=== PATIENT | male | born 1995 | race Caucasian/White ===

== ENCOUNTER 2021-01-06 14:22 | Inpatient (IN) | payer OTHER, SELFPAY ==
[2021-01-06 14:54] LABS: HEMATOCRIT 51.1 % (42.0-52.0); HEMOGLOBIN 17.3 g/dl (13.5-17.5); MEAN CORPUSCULAR HEMOGLOBIN 32.4 pg (27.0-33.0); MEAN CORPUSCULAR HGB CONC 33.9 g/dl (32.0-36.5); MEAN CORPUSCULAR VOLUME 95.7 fl (80.0-96.0); PLATELET COUNT, AUTOMATED 283 10^3/uL (150-450); RED BLOOD COUNT 5.34 10^6/uL (4.30-6.10); WHITE BLOOD COUNT 10.9 10^3/uL (4.0-10.0)
[2021-01-06 15:18] LABS: AMPHETAMINES LEVEL URINE NEGATIVE (NEGATIVE); BARBITURATES URINE NEGATIVE (NEGATIVE); BENZODIAZEPINES URINE NEGATIVE (NEGATIVE); CANNABINOIDS URINE POSITIVE (NEGATIVE); COCAINE METABOLITE URINE NEGATIVE (NEGATIVE); METHADONE URINE NEGATIVE (NEGATIVE); OPIATES URINE NEGATIVE (NEGATIVE); PHENCYCLIDINE URINE NEGATIVE (NEGATIVE)
[2021-01-06 15:31] LABS: ACETAMINOPHEN LEVEL < 2.0 UG/ML (10.0-30.0); ALBUMIN 4.7 GM/DL (3.2-5.2); ALT/SGPT 57 U/L (12-78); BILIRUBIN,DIRECT 0.2 MG/DL (0.0-0.2); BILIRUBIN,TOTAL 0.6 MG/DL (0.2-1.0); BLOOD UREA NITROGEN 7 MG/DL (7-18); CALCIUM LEVEL 9.5 MG/DL (8.5-10.1); CARBON DIOXIDE LEVEL 23 MEQ/L (21-32); CHLORIDE LEVEL 105 MEQ/L (98-107); CREATININE FOR GFR 0.96 MG/DL (0.70-1.30); ETHYL ALCOHOL (ETHANOL) 0.159 % (0.000-0.010); GLOMERULAR FILTRATION RATE > 60.0 (>60); GLUCOSE, FASTING 82 MG/DL (70-100); POTASSIUM SERUM 3.8 MEQ/L (3.5-5.1); SALICYLATE LEVEL 1.8 MG/DL (5.0-30.0); SODIUM LEVEL 137 MEQ/L (136-145); THYROID STIMULATING HORMONE 0.255 uIU/ML (0.358-3.740); TOTAL PROTEIN 8.3 GM/DL (6.4-8.2)
[2021-01-06] MEDS ORDERED: NICOTINE 21MG/24HR 1 EA TRANSDERMAL TD ONE (17:30)
--- NOTE | 2021-01-06 19:24 | REP ---
INDICATION: trauma COMPARISON: None. TECHNIQUE: Frontal view of the chest with multiple views of the right hemithorax. Five total images. FINDINGS: Frontal view of the chest demonstrates no acute cardiopulmonary process, contusion, effusion, or pneumothorax. Multiple views of the right hemithorax demonstrates no acute rib fracture/injury or pathology. IMPRESSION: Normal rib series. <Electronically signed by Jeffrey Sams > 01/06/21 1921
[2021-01-06] MEDS ORDERED: CEPACOL LOZENGE MT ONE (22:35)
[2021-01-06] MEDS ORDERED: PROBCAP14 PO (22:48)
[2021-01-07] MEDS ORDERED: LORazepam 2 MG TAB PO STA (02:09)
[2021-01-07] MEDS ORDERED: CEPACOL LOZENGE MT ONE (21:15)
[2021-01-08] MEDS: NICOTINE 21MG/24HR 1 EA TRANSDERMAL TD SCH (09:00)
[2021-01-08 12:31] LABS: RSV AMPLIFICATION NEGATIVE (NEGATIVE)
[2021-01-08] MEDS ORDERED: MAALOX 30 ML SUSP *UDC PO PRN (13:35)
[2021-01-08] MEDS ORDERED: ACETAMINOPHEN TAB 650MG DOSE (2X325MG) PO PRN (13:35)
[2021-01-08] MEDS ORDERED: MOM 30ML SUSPENSION UDC PO PRN (13:35)
[2021-01-08 16:37] VITALS: BP 140/83
[2021-01-08] MEDS: traZODone 50 MG TAB PO PRN (21:24)
[2021-01-08] MEDS ORDERED: CEPACOL LOZENGE PO PRN (22:10)
[2021-01-09 07:27] VITALS: BP 120/68
[2021-01-09] MEDS: NICOTINE 21MG/24HR 1 EA TRANSDERMAL TD SCH (09:00)
[2021-01-09] MEDS: hydrOXYzine 50 MG TAB PO PRN ×2 (11:35→17:39)
--- NOTE | 2021-01-09 11:37 | MHHPEPDOC ---
General Date Of Admission: Jan 08, 2021 Legal Status: 9.39 Chief Complaint ". I just called with the bad names, maybe cursed at her, but I didn't do anything and I didn't destroy anything and she just called the consumer relations complaint clerk. History of Present Illness HISTORY OF THE PRESENT ILLNESS: Patient is a 25 -year-old , male, who was no previous psychiatric history brought to emergency room by police. Admitted on status after his neighbor called the police to report that he was very paranoid and destroyed property. Patient stated that since he was discharged from the [employer] after serving 6 years in October of this year . He has been living on his father's property that he legally purchased in [facility]. On Friday, his truck needed jump cable and he asked his neighbor who happens to be his God Mother to borrow a jump cable but she refused several times and he became very upset and called her names and the lady called the police and he was arrested and brought to emergency. He stated that he had no paranoid ideations and has no emotional problem, hasn't had any psychiatric treatment and believes this all misunderstanding... He is denying any drug use and is denying any history of psychiatric treatment and denies any emotional problems. He is however quite intense and made somewhat odd and bizarre statement regarding his past service. his parents and brothers who he is describing as very bad people without giving any specific examples and doesn't want them to be contacted. He stated that he left the [employer] after an incident in 2019 that made him realize that the government is doing something terrible and he didn't want to be the servant of this government. He is denying any paranoia, denies any fear of persecution and denies any hallucination and denies any depression or suicidal thoughts. When asked about the giving consent to contact his neighbor or someone who may know the situation patient claims that he doesn't have any contact numbers and doesn't have any way of reaching them. He stated that his brothers are breaking laws and they are bad people and his father is an alcoholic and his mother is abusive and depressed and doesn't have anything to do with them. He is otherwise in good control and contact and very pleasant and cooperative and his speech is very well organized and spontaneous and is willing to cooperate with the evaluation process and understand that he is admitted on involuntary status. His only concern is that his emotional support animal of [place] S[place] is taken away and he is anxious to know where the dog is. He does not feel he needs any psychiatric treatment. Doesn't want any medications that may be narcotics. Psychiatric Review of Systems Depression (2 or more weeks): denies, other (denies any emotional difficulties) Leydi (4 or more days of): denies Psychosis: denies, other (. He appears somewhat intense and expressing significant paranoid ideas about the government and his family) Anxiety: denies Past Psychiatric History Previous Psychiatric Diagnosis: . More history of treatment Previous Psychiatric Admissions: . Never been hospitalized. Denies any suicide attempt. History Suicide Attempts: . None Psychiatric Follow-up: , Not in any treatment. Psychiatric medications: . Never tried any medication Past Medical History Medical Problems Denies any medical issues Head Injury: No Seizures: No Hospitalizations: No Surgeries: No Family Medical/Psychiatric HX Medical Problems Noncontributory Psychiatric Disorders: Yes (. The patient claimed his father is an alcoholic. His mother is very sick, without elaborate) Addiction: No Suicide Attemps/Completions: No Addiction History denies Social History Childhood: [. He was born in [place]. The [place], claims that the his father is an alcoholic]. Abuse/Trauma:[Denies any particular trauma or abuse]. Current Living Situation: Lives alone in his own house . Education: [Some college, currently taking online college courses in [employer]]. 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 Social Support: [. He has a steady girlfriend]. Legal: [Denies any legal history. No history of violence]. Marital: ., Never Mental Status Examination General Appearance: appears stated age Build: average Demeanor: average Eye Contact: average, intense Activity: average, anxious Behavior: cooperative Speech: clear, pressured, spontaneous, normal volume Mood: anxious Mood Reports feeling anxious and upset about being admitted on 939 status, but denies any ongoing depression or anxiety problems Affect: full, anxious Thought Process: logical/linear Thought Content (Delusions): denies SI, HI, AVH, paranoia (. There is an element of paranoia, especially regarding the government and his family, but is not expressing any specific delusional thinking) Thought Content (Other): none reported, appears paranoid Thought Content (Aggressive): none reported Perception (Hallucinations): none reported Perception (Other): none reported Cognition (Impairment of): none reported Cognition(Intelligence Est.): average Oriented: Awake, Alert, Oriented times three Insight: fair Judgment: Fair (. Questionable insight and judgment, but needs further clarification with cpllateral information) Psychosis: Denies Diagnoses Rule out paranoid disorder, NOS A-FIB/CHADSVASC A-FIB History Current/History of A-Fib/PAF?: No Current PO Anticoag Therapy: No Age/Risk Factor Scoring CHADSVASC: CHADSVASC Response (Comments) Value Gender Risk Factor Male 0 Hx of CHF No 0 Hx of HTN No 0 Hx of Stroke/TIA/or VTE No 0 Hx of Diabetes No 0 Hx of Vascular Disease No 0 Total 0 Treatment Treatment ordered: NONE Assessment The patient presented with a somewhat pressured and intense attitude, but his behavior is in control and is denying any gross delusional thinking or lethality. There is a significant paranoid element and flavor in his pres entation, but needs further information and observation to clarify. Need to have some collateral information. We will observe with the supportive therapy and lethality evaluation Initial Treatment Plan 1. Patient was admitted on a 9.39 status. 2. Complete history was obtained. 3. With patients permission, family will be contacted and database will be expanded. 4. Patients medication regimen will be reviewed and changed accordingly. 5. Patient will be provided with protected environment. 6. Patient will be treated with individual, group, and milieu therapies. 7. Patient will receive supportive psych-education. 8. Discharge planning will commence immediately. 9. Outpatient follow-up treatment will be strongly recommended. 10. The initial treatment plan will focus initially on: * Depression. * Risk for suicide. ESTIMATED LENGTH OF STAY: 3-5 DAYS. TIME SPENT COUNSELING AND COORDINATING INITIAL CARE: 45 minutes. Tobacco Cessation Screen If Patient is a Smoker Non-smoker N/A-No Antipsychotics Vital Signs Vital Signs Date Time Temp Pulse Resp B/P (MAP) Pulse Ox O2 Delivery O2 Flow Rate FiO2 01/09/21 07:27 98.5 74 20 120/68 (85) 99 Room Air Laboratory Data 24H Labs Laboratory Tests 2 01/08/21 11:21: Coronavirus (COVID-19)(PCR) NEGATIVE, Influenza Type A (RT-PCR) NEGATIVE, Influenza Type B (RT-PCR) NEGATIVE, Respiratory Syncytial Virus (PCR) NEGATIVE Medications Scheduled Lactobacillus Acidophilus (Probiotic) 1 Each Capsule, 1 CAP PO DAILY, (Reported) Allergies Coded Allergies: No Known Drug Allergies (Verified Allergy, Unknown, 01/06/21) TORREY ROSS M.D. Jan 09, 2021 11:37
[2021-01-09 13:34] LABS: BASO % 0.5 % (0.0-1.0); EOS # 0.1 10^3/uL (0.0-0.5); EOS % 0.7 % (0.0-3.0); HEMATOCRIT 49.2 % (42.0-52.0); LYMPH # 1.1 10^3/uL (1.5-5.0); LYMPH % 13.3 % (24.0-44.0); MEAN CORPUSCULAR HEMOGLOBIN 32.4 pg (27.0-33.0); MEAN CORPUSCULAR HGB CONC 34.6 g/dl (32.0-36.5); MEAN CORPUSCULAR VOLUME 93.9 fl (80.0-96.0); MONO # 0.6 10^3/uL (0.0-0.8); MONO % 6.9 % (2.0-8.0); NEUTROPHILS # 6.7 10^3/uL (1.5-8.5); NEUTROPHILS % 78.1 % (36.0-66.0); PLATELET COUNT, AUTOMATED 233 10^3/uL (150-450); RED BLOOD COUNT 5.24 10^6/uL (4.30-6.10); WHITE BLOOD COUNT 8.6 10^3/uL (4.0-10.0)
--- NOTE | 2021-01-09 13:41 | HPEPDOC ---
[facility] Medical History & Physical Date of Admission Jan 08, 2021 Date of Service: Jan 09, 2021 History and Physical Chief complaint: Who presented to the emergency room brought in by police for homicidal ideation History of present illness: Patient is a 25-year-old male with no significant past medical history who presented to the emergency room brought in by police after he got into an altercation with his neighbor appeared aggravated with a rifle in his hand. Jennifer ent reports that he thinks his Lutheran neighbors are upset him. Patient was admitted to the inpatient mental health unit under the care of psychiatry. Hospitalist service was consulted for medical screening evaluation. Patient reports some light sensitivity some nausea without vomiting. Denies any shortness of breath or cough. Reports some constipation. Has had some chills. Denies any fevers, no abdominal pain, or diarrhea. Denies any urinary discomfort. Has not experienced any changes in his weight or appetite. Patient reports that he was manhandled by the police. Is reporting some right sided chest wall tenderness. Rib x-ray completed in the emergency room has been negative for any acute fractures. 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 Review of Systems: 10 point review of systems complete, all negative otherwise stated in HPI Physical exam: - Vitals: BP [120/68], HR [74], RR [20], Sat [99%RA], Temp [98.5F] - General: Sitting up in chair, Speaking in full sentences, AAOx3 - HEENT: NC, AT, PERRLA - CVS: RRR, +S1S2 - Chest: No visible bruising is noted on the chest wall; there is tenderness along the right rib margins laterally - Lungs: Fair air entry bilaterally, No appreciable wheezing / rales / rhonchi - Abdomen: Soft, Non-distended, Non-tender - Extremities: No lower extremity edema, No calf tenderness - Neuro: No focal motor or sensory deficit - Skin: No visible rashes Labs: See below Imaging: R Rib XR 01/06: Normal rib series. EKG: See below Assessment and Plan: Homicidal ideation / Agitation - Patient was admitted to the inpatient mental health unit under the care of psychiatry - Currently being managed by psychiatry Right chest wall tenderness - Patient is also reporting tenderness of his right elbow and left hand - Imaging has been negative for any signs of fracture - Will repeat imaging Leukocytosis; likely reactive - ROS negative for any source of infection - Afebrile and hemodynamically stable - Will repeat CBC Suppressed TSH - Will repeat thyroid function test DVT prophylaxis - Will continue with her rehabilitation Thank you for this consultation; Hospitalist service will now sign off; please reconsult as needed Vital Signs Vital Signs Date Time Temp Pulse Resp B/P (MAP) Pulse Ox O2 Delivery O2 Flow Rate FiO2 01/09/21 07:27 98.5 74 20 120/68 (85) 99 Room Air Laboratory Data Labs 24H Laboratory Tests 2 01/09/21 13:14: Immature Granulocyte % (Auto) 0.5, Neutrophils (%) (Auto) 78.1H, Lymphocytes (%) (Auto) 13.3L, Monocytes (%) (Auto) 6.9, Eosinophils (%) (Auto) 0.7, Basophils (%) (Auto) 0.5, Neutrophils # (Auto) 6.7, Lymphocytes # (Auto) 1.1L, Monocytes # (Auto) 0.6, Eosinophils # (Auto) 0.1, Basophils # (Auto) 0.0, Nucleated Red Blood Cells % (auto) 0.0 CBC/BMP Laboratory Tests 01/09/21 13:14 Home Medications Scheduled Lactobacillus Acidophilus (Probiotic) 1 Each Capsule, 1 CAP PO DAILY Allergies Coded Allergies: No Known Drug Allergies (Verified Allergy, Unknown, 01/06/21) ELIZABETH ANDREW MD Jan 09, 2021 13:41
[2021-01-09 14:16] LABS: THYROID STIMULATING HORMONE 1.04 uIU/ML (0.358-3.740); TOTAL T3 91.8 NG/DL (60.0-181.0)
--- NOTE | 2021-01-09 14:40 | REP ---
INDICATION: L thenar pain COMPARISON: None. TECHNIQUE: AP and lateral left hand views. FINDINGS: The osseous structures and joint spaces are intact and normal. There is no evidence for acute fracture or dislocation. Surrounding soft tissues are unremarkable. No subcutaneous emphysema or radiodense foreign body. IMPRESSION: No obvious abnormality by radiographic evaluation. No acute fracture or dislocation. <Electronically signed by Jeffrey Sams > 01/09/21 [id number]
--- NOTE | 2021-01-09 14:41 | REP ---
INDICATION: R sided chest wall pain COMPARISON: 01/06/2021 TECHNIQUE: Portable AP view of the chest FINDINGS: The mediastinum and cardiac silhouette are stable and within normal limits for portable technique. The lung momin are clear without acute consolidation, effusion, or pneumothorax. Skeletal structures are intact. IMPRESSION: No acute cardiopulmonary process appreciated. <Electronically signed by Jeffrey Sams > 01/09/21 [id number]
--- NOTE | 2021-01-09 14:41 | REP ---
INDICATION: R elbow pain COMPARISON: None. TECHNIQUE: AP and lateral views right elbow. FINDINGS: No acute fracture or dislocation is appreciated. Joint spaces and surrounding soft tissues appear normal. Lateral view demonstrates normal positioning to the anterior and posterior fat pads without evidence for effusion/hemarthrosis. No subcutaneous emphysema or foreign body identified. IMPRESSION: Normal elbow radiographs. <Electronically signed by Jeffrey Sams > 01/09/21 [id number]
[2021-01-09 18:44] VITALS: BP 117/59
[2021-01-09] MEDS: traZODone 50 MG TAB PO PRN (21:07)
[2021-01-10] MEDS ORDERED: QUEtiapine FUMARATE 50MG TAB PO ONE (00:10)
[2021-01-10 06:46] VITALS: BP 112/71
[2021-01-10] MEDS: NICOTINE 21MG/24HR 1 EA TRANSDERMAL TD SCH (09:00)
[2021-01-10] MEDS ORDERED: LORazepam 1 MG TAB PO PRN (10:10)
--- NOTE | 2021-01-10 10:26 | MHIPNPDOC ---
[facility] Progress Note Progress Note DATE OF SERVICE: 01/10/21 Patient is very evasive and guarded and continued to deny that he was paranoid or [id number] with his neighbor. His dog is with his father, but he doesn't trust his father to properly care for the dog. The emergency room record shows that his father reported that he was quite paranoid and has been showing some paranoid behavior since his discharge from the [employer] in 2020. The father reported increasing use of alcohol and cannabis and has been showing significant changes in his mental status and behavior the patient was confronted with this information and patient admits to using alcohol and cannabis but denies any hallucinations or paranoia, and claims that his father is distorting the fact and he is the one who is making false accusations. The patient is not as intense and is maintaining good control, but is clearly showing marked the paranoid ideas but denies any suicidal or homicidal thoughts, and is anxious to be discharged. He agreed to take some Ativan to control his anxiety, but does not want any antipsychotic medication. HISTORY: . VITAL SIGNS: See below. NEW TEST RESULTS: . CURRENT MEDICATIONS: See below. MENTAL STATUS EXAMINATION: Patient is a 25-year old male, who is quite anxious, but cooperative and in good control. Speech: Is , productive, and relevant. Language skills are good. Thought processes including: , Coherent with preoccupied with the thoughts of paranoid nature. Thought content: Marked the paranoid ideas about his family. Abstract reasoning, and computation: fair. Description of associations: Relevant and coherent but pressured. Description of abnormal or psychotic thoughts: Marked paranoid ideas but patient denies any hallucination or grossly delusional thinking and no suicidal thoughts]. Judgment: poor. Insight: very poor. Orientation: , Oriented. Recent and remote memory: fair. Attention span and concentration: fair. Language: . Fund of knowledge: . Mood: , Anxious. Affect: Intense, somewhat labile. DIAGNOSES: 1. . Paranoid disorder, NOS 2. . 3. . ASSESSMENT:Patient is not expressing any gross delusional ideas, but showing marked the paranoid flavor, quite possibly related to his ongoing alcohol and cannabis abuse. Patient does not appear to be acutely suicidal or homicidal and denies any aggressive thoughts and has no history of aggressive assaultive behavior MANAGEMENT PLAN: Patient is refusing to take any antipsychotic medicine. I will give Ativan 1 mg 3 times a day and when necessary and continue the supportive therapy and lethality evaluation . TIME SPENT: 20 minutes. Vital Signs Vital Signs Date Time Temp Pulse Resp B/P (MAP) Pulse Ox O2 Delivery O2 Flow Rate FiO2 01/10/21 06:46 98.2 84 18 112/71 (85) 100 Room Air Laboratory Data 24H Labs Laboratory Tests 2 01/09/21 13:14: Immature Granulocyte % (Auto) 0.5, Neutrophils (%) (Auto) 78.1H, Lymphocytes (%) (Auto) 13.3L, Monocytes (%) (Auto) 6.9, Eosinophils (%) (Auto) 0.7, Basophils (%) (Auto) 0.5, Neutrophils # (Auto) 6.7, Lymphocytes # (Auto) 1.1L, Monocytes # (Auto) 0.6, Eosinophils # (Auto) 0.1, Basophils # (Auto) 0.0, Nucleated Red Blood Cells % (auto) 0.0, Thyroid Stimulating Hormone (TSH) 1.040, Free Thyroxine 1.00, Total Triiodothyronine 91.8 CBC/BMP Laboratory Tests 01/09/21 13:14 Current Medications Current Medications Medications (Trade) Dose Ordered Sig/Pari Route PRN Reason Start Time Stop Time Status Last Admin Dose Admin Acetaminophen (Tylenol Tab) 650 mg Q6HP PRN PO HEADACHE or MILD DISCOMFORT 01/08/21 13:35 Al Hydrox/Mg Hydrox/Simethicone (Mylanta) 30 ml Q4HP PRN PO HEARTBURN/INDIGESTION 01/08/21 13:35 Cetylpyridinium Chloride (Cepacol) 1 eliezer Q2HP PRN PO SORE THROAT 01/08/21 22:10 Home Med (Med Rec Complete!) ASDIRECTED XX 01/06/21 22:50 01/06/21 22:50 DC Hydroxyzine HCl (Atarax) 50 mg Q6HP PRN PO anxiety/agitation 01/09/21 10:00 01/09/21 17:39 Lorazepam (Ativan) 2 mg STAT STAT PO 01/07/21 02:09 01/07/21 02:10 DC 01/07/21 02:35 Magnesium Hydroxide (Milk Of Magnesia) 30 ml DAILYPRN PRN PO CONSTIPATION 01/08/21 13:35 Nicotine (Nicoderm Cq 21mg) 1 patch DAILY TD 01/08/21 09:00 Trazodone HCl (Desyrel) 50 mg QHSP PRN PO INSOMNIA 01/08/21 13:35 01/09/21 21:07 Allergies Coded Allergies: No Known Drug Allergies (Verified Allergy, Unknown, 01/06/21) TORREY ROSS M.D. Jan 10, 2021 10:26
[2021-01-10] MEDS: LORazepam 1 MG TAB PO SCH ×3 (10:38→21:36)
[2021-01-10 18:42] VITALS: BP 136/85
[2021-01-11 06:27] VITALS: BP 126/60
[2021-01-11] MEDS: LORazepam 1 MG TAB PO SCH ×3 (08:24→22:02)
[2021-01-11] MEDS: NICOTINE 21MG/24HR 1 EA TRANSDERMAL TD SCH (08:25)
--- NOTE | 2021-01-11 09:46 | MHIPNPDOC ---
[facility] Progress Note Progress Note DATE OF SERVICE: 01/11/21 , The patient took prescribed Ativan and trazodone at nighttime. He stated that he was not anxious, but is just sad that he can't see his dog.. He denies any se rious depression or suicidal thoughts, but when asked about all the reports about his somewhat bizarre behavior. The patient replied that he is just a weird bear.. He admits that he was arrested for criminal trespass at a local hotel in October and claims that he had the reservation for 3 nights of stay in the hotel and he was thrown out. He stated that he retained a helicopter officer and was offered a plea bargain to a misdemeanor, but he is refusing the plea offer and trying to get the full court hearing on this. He is admitting that he has done some odd and bizarre things, but denies any organized delusional or paranoid thinking. Denies that anybody is trying to harm him and also denies that he is depressed or suicidal. Is denying any command hallucination. Denies any thoughts of suicide and denies any thoughts, intent or plan of harming anybody although he believes that his father and brothers are all very bad people and doesn't trust them and doesn't want to have anything to do with them. Overall, he seems to recognize the odd , and strange behavior pattern of his butt denies any organized paranoid delusional nature.. His affect is much less intense and not as labile or agitated but is more sad and depressed and tearful primarily due to his current situation. He could very well have a schizotypal personality and significant paranoia worsened due to his cannabis and alcohol abuse but does not show any characteristic symptoms of schizophrenia or major affective disorder. He does not appear to be acutely suicidal or homicidal and does not appear to have any potential for imminent violence. He is refusing to take any regular psychotropic medications and I do not see any grounds for seeking involuntary medication. I will continue to observe him for the next day and may discharge him if I do not see any clear danger of physical violence HISTORY: . VITAL SIGNS: See below. NEW TEST RESULTS: . CURRENT MEDICATIONS: See below. MENTAL STATUS EXAMINATION: Patient is a 25-year old male, who is , cooperative and in control. Speech: Is at times circumstantial but rational and coherent. Language skills are good . Thought processes including: Relevant and coherent. Thought content: Denies any gross paranoid delusions. Denies any hallucination. Abstract reasoning, and computation: Good. Description of associations: Fairly well organized. Description of abnormal or psychotic thoughts: Denies any delusional ideas and denies any hallucinations. Judgment: poor. Insight: poor. Orientation: , Well oriented,. Recent and remote memory: , Unimpaired. Attention span and concentration: fair. Language: . Fund of knowledge: Average. Mood: Sad and mildly depressed. Affect: , Tearful and appropriate. DIAGNOSES: 1. . Paranoid disorder, NOS 2. ., Rule out schizotypal personality disorder 3. . ASSESSMENT:Patient is maintaining good control, is not showing any suicidal and homicidal thoughts or behavior MANAGEMENT PLAN: . Continue with the supportive therapy and lethality evaluation. TIME SPENT: 25] minutes. Vital Signs Vital Signs Date Time Temp Pulse Resp B/P (MAP) Pulse Ox O2 Delivery O2 Flow Rate FiO2 01/11/21 06:27 98.6 90 16 126/60 (82) 100 Room Air Current Medications Current Medications Medications (Trade) Dose Ordered Sig/Pari Route PRN Reason Start Time Stop Time Status Last Admin Dose Admin Acetaminophen (Tylenol Tab) 650 mg Q6HP PRN PO HEADACHE or MILD DISCOMFORT 01/08/21 13:35 Al Hydrox/Mg Hydrox/Simethicone (Mylanta) 30 ml Q4HP PRN PO HEARTBURN/INDIGESTION 01/08/21 13:35 Cetylpyridinium Chloride (Cepacol) 1 eliezer Q2HP PRN PO SORE THROAT 01/08/21 22:10 Home Med (Med Rec Complete!) ASDIRECTED XX 01/06/21 22:50 01/06/21 22:50 DC Hydroxyzine HCl (Atarax) 50 mg Q6HP PRN PO anxiety/agitation 01/09/21 10:00 01/10/21 10:26 DC 01/09/21 17:39 Lorazepam (Ativan) 1 mg Q6HP PRN PO ANXIETY/AGITATION 01/10/21 10:10 Lorazepam (Ativan) 1 mg TID PO 01/10/21 09:00 01/11/21 08:24 Lorazepam (Ativan) 2 mg STAT STAT PO 01/07/21 02:09 01/07/21 02:10 DC 01/07/21 02:35 Magnesium Hydroxide (Milk Of Magnesia) 30 ml DAILYPRN PRN PO CONSTIPATION 01/08/21 13:35 Nicotine (Nicoderm Cq 21mg) 1 patch DAILY TD 01/08/21 09:00 Trazodone HCl (Desyrel) 50 mg QHSP PRN PO INSOMNIA 01/08/21 13:35 01/09/21 21:07 Allergies Coded Allergies: No Known Drug Allergies (Verified Allergy, Unknown, 01/06/21) TORREY ROSS M.D. Jan 11, 2021 09:46
[2021-01-11 17:44] VITALS: BP 149/85
[2021-01-12 06:32] VITALS: BP 132/83
[2021-01-12] MEDS: NICOTINE 21MG/24HR 1 EA TRANSDERMAL TD SCH (08:04)
[2021-01-12] MEDS: LORazepam 1 MG TAB PO SCH (08:04)
[2021-01-12] MEDS ORDERED: TRAZ-257 PO (08:46)
--- NOTE | 2021-01-12 12:13 | MHDSPDOC ---
[facility] Discharge Summary Discharge Summary DATE OF ADMISSION: Jan 08, 2021 at 13:32 DATE OF DISCHARGE: Jan 12, 2021 at 11:20 DISCHARGE DIAGNOSES: 1. . Paranoid disorder, NOS 2. . REASON FOR ADMISSION: 25-year-old single male with no previous psychiatric history was admitted due to increasing paranoia and the somewhat threatening behavior to his neighbor. Patient apparently has been using excessive alcohol and cannabis has been showing some bizarre behavior. According to his father. Patient made threatening remarks to his neighbor and was brought to emergency room by police. On admission, patient admits to making remarks to his neighbor, but denies any hallucination or paranoid delusions and denies any suicidal thoughts or any homicidal thoughts and denies any need for psychiatric treatment. CONSULTANTS INVOLVED: TREATMENT AND PROGRESS ON THE UNIT : Patient was seen for supportive therapy and lethality evaluation and was given Ativan 1 mg 3 times a day and trazodone at night to control his anxiety and insomnia. Patient did admit to somewhat odd and bizarre behavior, claiming that he is a weird person, but denies any gross paranoid thoughts and denies any hallucinations and denies any lethality. He has been very polite and rational and coherent and maintained very good control and is very apologetic. 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 Patient does not appear to be an imminent danger to himself or other people and doesn't admit to listing criteria for involuntary retention, he will be discharged with the recommendation to follow-up with us outpatient psychiatric treatment. HOSPITAL COURSE: As described above DISCHARGE ASSESSMENT: Patient is in no acute distress, not grossly psychotic, not clinically depressed and not appear suicidal or homicidal. MENTAL STATUS EXAMINATION ON DISCHARGE: Patient is a 25-year old male, who is in good control. Speech is coherent, rational, productive . Language skills are good. Thought processes including: Organized. Thought content: . Denies any delusion or hallucination. Abstract reasoning, and computation: fair. Description of associations: Relevant. Description of abnormal or psychotic thoughts: Denies any hallucination. No paranoia. Judgment: fair. Insight: poor. Orientation to , well oriented, unimpaired. Recent and remote memory: . Attention span and concentration: . Language: . Fund of knowledge: . Mood: , Moderately anxious. Affect: Good range and quite appropriate. MEDICATIONS ON DISCHARGE: - for ., Trazodone 100 mg at bedtime for 7 days with 3 refills - for . - for . PLAN/FOLLOWUP ARRANGEMENTS: Arranged by the meeting planner. The amount of time spent in the coordination of care for this patient was approximately 35 minutes. ETOH/Disorder Med Rx ETOH/DRUG DISORDER RX: N/A Vital Signs/I&Os Vital Signs Date Time Temp Pulse Resp B/P (MAP) Pulse Ox O2 Delivery O2 Flow Rate FiO2 01/12/21 06:32 97.2 92 12 132/83 (99) 100 Room Air Medications Scheduled Lactobacillus Acidophilus (Probiotic) 1 Each Capsule, 1 CAP PO DAILY, (Reported) Trazodone HCl (Trazodone HCl) 100 Mg Tablet, 100 MG PO QHS for sleep for 7 Days, #7 Allergies Coded Allergies: No Known Drug Allergies (Verified Allergy, Unknown, 01/06/21) TORREY ROSS M.D. Jan 12, 2021 12:13
[2021-01-12] MEDS ORDERED: traZODone 100 MG TAB PO SCH (21:00)
== END 2021-01-12 11:20 | disposition home or self-care (01) | DRG 760 ==
LOC: M ED 14:22 → M ED INP 01-08 13:32 → M PSY 01-08 15:25
PROVIDERS: ADMIT Psychiatry & Neurology Psychiatry; ATTEND Psychiatry & Neurology Psychiatry
DX: F22 Delusional disorders (principal); Z20.822 Contact with and (suspected) exposure to COVID-19; Z79.899 Other long term (current) drug therapy; F10.10 Alcohol abuse, uncomplicated; F12.10 Cannabis abuse, uncomplicated

== ENCOUNTER 2021-01-26 22:32 | Emergency (ER) | payer SELFPAY ==
[~2021-01-26] VITALS: Ht 177.8 cm; Wt 75.0 kg
[~2021-01-26 22:32] MED LIST: PROBCAP14 PO; TRAZ-257 PO
[2021-01-27 02:47] LABS: HEMATOCRIT 47.2 % (42.0-52.0); MEAN CORPUSCULAR HEMOGLOBIN 32.3 pg (27.0-33.0); MEAN CORPUSCULAR HGB CONC 33.9 g/dl (32.0-36.5); MEAN CORPUSCULAR VOLUME 95.2 fl (80.0-96.0); PLATELET COUNT, AUTOMATED 305 10^3/uL (150-450); RED BLOOD COUNT 4.96 10^6/uL (4.30-6.10); WHITE BLOOD COUNT 7.4 10^3/uL (4.0-10.0)
[2021-01-27 03:11] LABS: AMPHETAMINES LEVEL URINE NEGATIVE (NEGATIVE); BARBITURATES URINE NEGATIVE (NEGATIVE); BENZODIAZEPINES URINE NEGATIVE (NEGATIVE); CANNABINOIDS URINE POSITIVE (NEGATIVE); COCAINE METABOLITE URINE NEGATIVE (NEGATIVE); METHADONE URINE NEGATIVE (NEGATIVE); OPIATES URINE NEGATIVE (NEGATIVE); PHENCYCLIDINE URINE NEGATIVE (NEGATIVE)
[2021-01-27 03:21] LABS: ACETAMINOPHEN LEVEL < 2.0 UG/ML (10.0-30.0); ALT/SGPT 44 U/L (12-78); BILIRUBIN,DIRECT 0.1 MG/DL (0.0-0.2); BILIRUBIN,TOTAL 0.3 MG/DL (0.2-1.0); BLOOD UREA NITROGEN 8 MG/DL (7-18); CALCIUM LEVEL 8.7 MG/DL (8.5-10.1); CARBON DIOXIDE LEVEL 29 MEQ/L (21-32); CHLORIDE LEVEL 106 MEQ/L (98-107); ETHYL ALCOHOL (ETHANOL) 0.155 % (0.000-0.010); GLOMERULAR FILTRATION RATE > 60.0 (>60); GLUCOSE, FASTING 94 MG/DL (70-100); POTASSIUM SERUM 3.9 MEQ/L (3.5-5.1); SALICYLATE LEVEL 2.3 MG/DL (5.0-30.0); SODIUM LEVEL 140 MEQ/L (136-145); TOTAL PROTEIN 7.2 GM/DL (6.4-8.2)
[2021-01-27] MEDS ORDERED: OLANZapine ORAL DISINTEGRATING TAB 5MG PO ONE (06:20)
--- NOTE | 2021-01-27 11:00 | ECGEPIP ---
[facility] - ED Test Date: 2021-01-27 Pat Name: NELSY CAMPBELL Department: Room: - Gender: Male [employer] Team Member: mike : 1995 Requested By: NANCY Wallis Order Number: [id number] Reading MD: Celsa George Measurements Intervals [place] Rate: 82 P: 72 CA: 166 QRS: -20 QRSD: 98 T: 45 QT: 356 QTc: 415 Interpretive Statements Sinus rhythm with marked sinus arrhythmia Cannot rule out Anterior infarct , age undetermined No prior Electronically Signed on 01-27-2021 11:00:21 EDT by Celsa George
[2021-01-27 11:18] LABS: RSV AMPLIFICATION NEGATIVE (NEGATIVE)
[2021-01-27 13:38] VITALS: BP 134/84
== END 2021-01-27 13:39 ==
LOC: M ED 22:32
DX: F29 Unspecified psychosis not due to a substance or known physiological condition (principal); I10 Essential (primary) hypertension; F12.20 Cannabis dependence, uncomplicated

== ENCOUNTER 2021-02-17 10:46 | Emergency (ER) | payer MEDICAID, SELFPAY ==
[~2021-02-17] VITALS: Ht 175.3 cm; Wt 68.2 kg
[2021-02-17 12:07] LABS: HEMATOCRIT 49.9 % (42.0-52.0); HEMOGLOBIN 17.2 g/dl (13.5-17.5); MEAN CORPUSCULAR HEMOGLOBIN 31.8 pg (27.0-33.0); MEAN CORPUSCULAR HGB CONC 34.5 g/dl (32.0-36.5); MEAN CORPUSCULAR VOLUME 92.2 fl (80.0-96.0); PLATELET COUNT, AUTOMATED 339 10^3/uL (150-450); RED BLOOD COUNT 5.41 10^6/uL (4.30-6.10); WHITE BLOOD COUNT 8.7 10^3/uL (4.0-10.0)
[2021-02-17 12:35] LABS: AMPHETAMINES LEVEL URINE NEGATIVE (NEGATIVE); BARBITURATES URINE NEGATIVE (NEGATIVE); BENZODIAZEPINES URINE NEGATIVE (NEGATIVE); CANNABINOIDS URINE NEGATIVE (NEGATIVE); COCAINE METABOLITE URINE NEGATIVE (NEGATIVE); METHADONE URINE NEGATIVE (NEGATIVE); OPIATES URINE NEGATIVE (NEGATIVE); PHENCYCLIDINE URINE NEGATIVE (NEGATIVE)
[2021-02-17 12:47] LABS: ACETAMINOPHEN LEVEL < 2.0 UG/ML (10.0-30.0); ALBUMIN 4.7 GM/DL (3.2-5.2); ALT/SGPT 73 U/L (12-78); BILIRUBIN,DIRECT 0.3 MG/DL (0.0-0.2); BLOOD UREA NITROGEN 4 MG/DL (7-18); CALCIUM LEVEL 9.5 MG/DL (8.5-10.1); CARBON DIOXIDE LEVEL 28 MEQ/L (21-32); CHLORIDE LEVEL 103 MEQ/L (98-107); ETHYL ALCOHOL (ETHANOL) 0.115 % (0.000-0.010); GLOMERULAR FILTRATION RATE > 60.0 (>60); GLUCOSE, FASTING 111 MG/DL (70-100); POTASSIUM SERUM 3.2 MEQ/L (3.5-5.1); SALICYLATE LEVEL < 1.7 MG/DL (5.0-30.0); SODIUM LEVEL 139 MEQ/L (136-145); THYROID STIMULATING HORMONE 0.646 uIU/ML (0.358-3.740); TOTAL PROTEIN 8.6 GM/DL (6.4-8.2)
[2021-02-17] MEDS ORDERED: POTASSIUM CHLORIDE 10 MEQ SR TABLET PO ONE ×2 (13:40→22:30)
[2021-02-17] MEDS ORDERED: ONDANSETRON 4 MG ORAL DISINTEGRATING TAB PO ONE (16:40)
[2021-02-17] MEDS ORDERED: NICOTINE 21MG/24HR 1 EA TRANSDERMAL TD ONE (16:40)
[2021-02-17 16:47] LABS: RSV AMPLIFICATION NEGATIVE (NEGATIVE)
--- NOTE | 2021-02-17 18:24 | REPVR ---
PROCEDURE INFORMATION: Exam: CT Cervical Spine Without Contrast Exam date and time: 02/17/2021 5:37 PM Age: 25 years old Clinical indication: Injury or trauma; Fall; Blunt trauma TECHNIQUE: Imaging protocol: Computed tomography images of the cervical spine without contrast. Axial, coronal and sagittal reformatted images were created and reviewed. Radiation optimization: All CT scans at this facility use at least one of these dose optimization techniques: automated exposure control; mA and/or kV adjustment per patient size (includes targeted exams where dose is matched to clinical indication); or iterative reconstruction. COMPARISON: CR PORTABLE CHEST X-RAY 01/09/2021 2:21 PM FINDINGS: Bones/joints: Normal cervical lordosis. No CT evidence of acute fracture, dislocation or subluxation. Alignment anatomic. Mild dextroscoliosis. Vertebral body heights maintained. Discs/Spinal canal/Neural foramina: Intervertebral disc spaces preserved. No significant spinal canal or neural foraminal stenosis. Lungs: Grossly unremarkable. Soft tissues: Grossly unremarkable. IMPRESSION: 1. No CT evidence of acute cervical spine traumatic injury. 2. Additional findings, as above. Electronically signed by: Brian Nayak On 02/17/2021 18:23:50 PM
--- NOTE | 2021-02-17 18:28 | REPVR ---
PROCEDURE INFORMATION: Exam: CT Head Without Contrast Exam date and time: 02/17/2021 5:37 PM Age: 25 years old Clinical indication: Injury or trauma; Fall; Blunt trauma (contusions or hematomas) TECHNIQUE: Imaging protocol: Computed tomography of the head without contrast. Axial and coronal reformatted images were created and reviewed. Radiation optimization: All CT scans at this facility use at least one of these dose optimization techniques: automated exposure control; mA and/or kV adjustment per patient size (includes targeted exams where dose is matched to clinical indication); or iterative reconstruction. COMPARISON: No relevant prior studies available. FINDINGS: Brain: No CT evidence of acute intracranial hemorrhage or acute territorial infarction. No significant mass effect or midline shift. Basal cisterns patent. Cerebral ventricles: Normal in size and configuration. Paranasal sinuses: Minimal polypoid left maxillary sinus mucosal thickening. Mastoid air cells: Grossly unremarkable. Bones/joints: No acute osseous abnormality. Soft tissues: Grossly unremarkable. IMPRESSION: 1. No CT evidence of acute intracranial pathology. 2. Additional findings, as above. Electronically signed by: Brian Nayak On 02/17/2021 18:28:13 PM
[2021-02-17] MEDS ORDERED: traZODone 100 MG TAB PO ONE (19:40)
[2021-02-17] MEDS ORDERED: TRAZ-189 PO (20:40)
[2021-02-17] MEDS ORDERED: OLANZapine ORAL DISINTEGRATING TAB 5MG PO ONE (20:40)
[2021-02-17] MEDS ORDERED: MED REC COMMENT (20:43)
[2021-02-17] MEDS ORDERED: HOME MED LIST COMPLETE! XX SCH (20:45)
[2021-02-17 21:18] LABS: CPK CREATINE PHOSPHOKINASE 450 U/L (39-308)
[2021-02-18 04:03] VITALS: BP 133/60
--- NOTE | 2021-02-18 20:19 | ECGEPIP ---
[facility] - ED Test Date: 2021-02-17 Pat Name: NELSY CAMPBELL Department: Room: - Gender: Male [employer]: JANI : 1995 Requested By: SUSI Carr Order Number: [id number] Reading MD: Celsa George Measurements Intervals [place] Rate: 72 P: 55 RI: 142 QRS: -9 QRSD: 86 T: 36 QT: 368 QTc: 402 Interpretive Statements Sinus rhythm with marked sinus arrhythmia delayed r progression decreased rate 01/27/21 Electronically Signed on 02-18-2021 20:19:09 EDT by Celsa George
== END 2021-02-18 04:08 ==
LOC: M ED 10:46
DX: F10.10 Alcohol abuse, uncomplicated (principal); Y90.0 Blood alcohol level of less than 20 mg/100 ml; F60.0 Paranoid personality disorder
CPT/HCPCS: 36415; 70450; 72125; 80048; 80076; 80143; 80307; 82077; 82550; 84443; 85027; 87631; 93005; 99285; G0480; Q0162